=== PATIENT | female | born 1945 | race Caucasian/White ===

== ENCOUNTER 2024-08-14 15:53 | Outpatient (RCR) | payer MEDICARE, SELFPAY | END 2024-08-28 23:59 | disposition home or self-care (01) | LOC: SPT 15:53 | PROVIDERS: Visit Provider Student in an Organized Health Care Education/Training Program | DX: M17.11 Unilateral primary osteoarthritis, right knee (principal) | CPT/HCPCS: 97110; 97161 ==

== ENCOUNTER 2024-08-31 16:09 | Outpatient (RCR) | payer MEDICARE, SELFPAY | END 2024-09-27 23:59 | disposition home or self-care (01) | LOC: SPT 16:09 | PROVIDERS: Visit Provider Student in an Organized Health Care Education/Training Program | DX: M17.11 Unilateral primary osteoarthritis, right knee (principal) | CPT/HCPCS: 97110 ==

== ENCOUNTER 2024-09-28 06:30 | Outpatient (RCR) | payer MEDICARE, SELFPAY | END 2024-10-11 13:10 | disposition home or self-care (01) | LOC: SPT 06:30 | PROVIDERS: Visit Provider Student in an Organized Health Care Education/Training Program | DX: M17.11 Unilateral primary osteoarthritis, right knee (principal) | CPT/HCPCS: 97110 ==